=== PATIENT | female | born 1955 | race Two or more races ===

== ENCOUNTER 2022-03-10 21:05 | Inpatient (IN) | payer OTHER ==
[~2022-03-10] VITALS: Ht 152.4 cm; Wt 84.9 kg
[2022-03-10 12:50] VITALS: BP 113/74
[2022-03-10] MEDS ORDERED: LORazepam 2MG/ML-1ML VIAL IV ONE (22:30)
[2022-03-10] MEDS ORDERED: IPRATROPIUM BROM 0.5 MG/2.5ML INH SOL NEB ONE (22:30)
[2022-03-10] MEDS ORDERED: ALBUTEROL SULF 2.5 MG/0.5ML(0.5%) NEB SOLN NEB ONE (22:30)
[2022-03-10] MEDS ORDERED: methylPREDNISolone SOD SUCC 125 MG/2 ML VL IV ONE (22:30)
[2022-03-10] MEDS ORDERED: IOHEXOL 350 MG/ML 100ML IJ ONE (22:36)
[2022-03-10] MEDS ORDERED: ALBUTEROL SULF 2.5 MG/0.5ML(0.5%) NEB SOLN ONE (22:38)
[2022-03-10] MEDS ORDERED: MIDAZOLAM HCL 5 MG/ML-1ML VIAL ONE (22:43)
[2022-03-10] MEDS ORDERED: MIDAZOLAM HCL 5 MG/ML-1ML VIAL IV ONE (22:45)
[2022-03-10] MEDS ORDERED: ETOMIDATE (2MG/ML) 20ML VIAL IV ONE (22:45)
[2022-03-10] MEDS ORDERED: SUCCINYLCHOLINE CHLORIDE 20 MG/ML 10ML VIAL IV ONE (22:45)
[2022-03-10] MEDS ORDERED: MIDAZOLAM DRIP 50 mg/50mL 50 ML IV ONE (22:46)
[2022-03-10] MEDS: MIDAZOLAM DRIP 50 mg/50mL 50 ML IV SCH (22:50)
[2022-03-10] MEDS ORDERED: AZITHROMYCIN 500MG/ 250ML 250 ML IV ONE (23:15)
[2022-03-10] MEDS ORDERED: MAGNESIUM SULFATE 1GM/100ML 100 ML IV ONE (23:15)
[2022-03-10] MEDS ORDERED: FUROSEMIDE 40 MG/4 ML VIAL IV ONE (23:15)
[2022-03-10] MEDS ORDERED: cefTRIAXone 1GM/50ML D5W 50 ML IV ONE (23:15)
[2022-03-10] MEDS ORDERED: fentaNYL Drip 2500mCg/250mlNS 250 ML IV ONE (23:24)
[2022-03-10 23:32] LABS: Basophils # (auto) 0 10 ^3/uL (0-0.2); Basophils % (auto) 0.3 % (0.0-2.0); Eosinophils # (auto) 0 10 ^3/uL (0-0.8); Eosinophils % (auto) 0.3 % (0.0-7.0); Hematocrit 46.5 % (36.0-46.0); Hemoglobin 15.4 g/dL (12.2-16.2); Lymphocytes # (auto) 2.2 10 ^3/uL (0.4-5.4); Lymphocytes % (auto) 17.2 % (10.0-50.0); Mean Corpuscular Hemoglobin 30.8 pg (28.0-32.0); Mean Corpuscular Hgb Conc. 33.1 g/dL (32.0-36.0); Monocytes # (auto) 0.5 10 ^3/uL (0-1.3); Monocytes % (auto) 3.9 % (0.0-12.0); Neutrophils # (auto) 9.9 10 ^3/uL (1.6-8.6); Neutrophils % (auto) 78.3 % (37.0-80.0); Nucleated Red Blood Cells % 0.1 %; Red Cell Distribution Width 13.6 % (11.8-14.3); White Blood Cell 12.6 10^3/uL (4.4-10.8)
[2022-03-10] MEDS: fentaNYL Drip 2500mCg/250mlNS 250 ML IV SCH (23:35)
[2022-03-10 23:50] LABS: Albumin 3.9 g/dL (3.4-5.0); Calcium 9.4 mg/dL (8.5-10.1); Potassium 4.8 mmol/L (3.5-5.1)
[2022-03-10 23:52] LABS: BUN/Creatinine Ratio 24.1
[2022-03-10 23:55] LABS: Bilirubin, Total 0.4 mg/dL (0.2-1.0); Total Protein 7.4 g/dL (6.4-8.2)
[2022-03-11] VITALS (13 sets, daily range): BP systolic 92–118; BP diastolic 52–81
[2022-03-11 00:01] LABS: INR 1.03 (0.9-1.15); Partial Thromboplastin Time 25.2 sec (24.6-33.4)
[2022-03-11] MEDS ORDERED: ACETAMINOPHEN 325 MG TAB PO PRN (02:00)
[2022-03-11] MEDS ORDERED: ONDANSETRON HCL 4 MG/2 ML VIAL IV PRN (02:00)
[2022-03-11] MEDS ORDERED: DOCUSATE SOD 100 MG CAP PO PRN (02:00)
[2022-03-11] MEDS ORDERED: HYDROcodone-ACET 5/325MG TAB PO PRN (02:00)
[2022-03-11] MEDS ORDERED: SODIUM CHLORIDE 0.9% 1,000 ML IV SCH (02:00)
[2022-03-11] MEDS ORDERED: MORPHINE SULFATE INJ 2 MG/ml SYRG IV PRN (02:00)
[2022-03-11 06:44] LABS: Hematocrit 43.3 % (36.0-46.0); Hemoglobin 14.6 g/dL (12.2-16.2); Mean Corpuscular Hemoglobin 31.2 pg (28.0-32.0); Mean Corpuscular Hgb Conc. 33.8 g/dL (32.0-36.0); Mean Corpuscular Volume 92.2 fL (80.0-100.0); Red Cell Distribution Width 13.4 % (11.8-14.3); White Blood Cell 8.9 10^3/uL (4.4-10.8)
[2022-03-11 07:03] LABS: Basophils % (manual) 0 (0.0-2.0); Blast Cells 0; Eosinophils % (manual) 0 (0-7); Metamyelocytes % 0; Monocytes % (manual) 0 (0-12); Myelocytes % 0; Promyelocytes % 0; Reactive Lymphocytes 0
[2022-03-11 07:38] LABS: BUN/Creatinine Ratio 25.9; Calcium 9.2 mg/dL (8.5-10.1); Potassium 4.1 mmol/L (3.5-5.1)
[2022-03-11 09:00] LABS: Band Neutrophils % (manual) 6; Lymphocytes % (manual) 7 (10.0-50.0)
[2022-03-11 11:09] LABS: Urine Bacteria NONE SEEN /hpf (None Seen); Urine Blood Negative /uL (Negative); Urine Mucus FEW (None Seen); Urine Specific Gravity 1.049 (1.001-1.035); Urine WBC 3 /hpf (0 - 5)
[2022-03-11] MEDS: FUROSEMIDE 40 MG/4 ML VIAL IV SCH (18:02)
[2022-03-11] MEDS: cefTRIAXone 1GM/50ML D5W 50 ML IV SCH (21:06)
[2022-03-11] MEDS: MIDAZOLAM DRIP 50 mg/50mL 50 ML IV SCH (22:45)
[2022-03-11] MEDS: fentaNYL Drip 2500mCg/250mlNS 250 ML IV SCH (23:30)
[2022-03-12] VITALS (69 sets, daily range): BP systolic 88–124; BP diastolic 52–83
[2022-03-12 05:35] LABS: Basophils # (auto) 0.1 10 ^3/uL (0-0.2); Basophils % (auto) 0.4 % (0.0-2.0); Eosinophils # (auto) 0 10 ^3/uL (0-0.8); Eosinophils % (auto) 0.1 % (0.0-7.0); Hematocrit 40.1 % (36.0-46.0); Hemoglobin 13.7 g/dL (12.2-16.2); Lymphocytes # (auto) 1.6 10 ^3/uL (0.4-5.4); Lymphocytes % (auto) 12.5 % (10.0-50.0); Mean Corpuscular Hgb Conc. 34.3 g/dL (32.0-36.0); Mean Corpuscular Volume 90.5 fL (80.0-100.0); Monocytes # (auto) 0.8 10 ^3/uL (0-1.3); Neutrophils # (auto) 10.4 10 ^3/uL (1.6-8.6); Nucleated Red Blood Cells % 0.2 %; Red Blood Cells 4.43 10^6/uL (4.0-5.20); Red Cell Distribution Width 13.6 % (11.8-14.3); White Blood Cell 12.8 10^3/uL (4.4-10.8)
[2022-03-12 05:55] LABS: Albumin 3.3 g/dL (3.4-5.0); BUN/Creatinine Ratio 27.6; Calcium 9.2 mg/dL (8.5-10.1); Magnesium 2.4 mg/dL (1.6-2.6); Potassium 3.6 mmol/L (3.5-5.1)
[2022-03-12 06:04] LABS: Bilirubin, Total 0.5 mg/dL (0.2-1.0); Total Protein 6.6 g/dL (6.4-8.2)
[2022-03-12] MEDS: FUROSEMIDE 40 MG/4 ML VIAL IV SCH ×2 (06:34→17:43)
[2022-03-12] MEDS: AZITHROMYCIN 500MG/ 250ML 250 ML IV SCH (10:12)
[2022-03-12] MEDS: ENOXAPARIN SOD 40 MG/0.4 ML SYRINGE SC SCH (10:13)
[2022-03-12] MEDS ORDERED: ASPirin 81 mg TAB PO ONE (10:45)
[2022-03-12] MEDS ORDERED: PANTOPRAZOLE 40 MG/10 ML VIAL INJ IV ONE (10:45)
[2022-03-12] MEDS: MIDAZOLAM DRIP 50 mg/50mL 50 ML IV SCH ×3 (10:55→20:57)
[2022-03-12] MEDS: NOREPINEPHRINE 8 MG/250ML KIT 250 ML IV SCH (12:47)
[2022-03-12] MEDS: cefTRIAXone 1GM/50ML D5W 50 ML IV SCH (20:53)
[2022-03-12] MEDS ORDERED: ACETAMINOPHEN 650 mg PER 20.3 mL UD GT ONE (21:45)
[2022-03-12 22:24] LABS: Basophils # (auto) 0.1 10 ^3/uL (0-0.2); Basophils % (auto) 0.5 % (0.0-2.0); Eosinophils # (auto) 0.1 10 ^3/uL (0-0.8); Eosinophils % (auto) 0.5 % (0.0-7.0); Hematocrit 40.7 % (36.0-46.0); Hemoglobin 13.8 g/dL (12.2-16.2); Lymphocytes # (auto) 2.2 10 ^3/uL (0.4-5.4); Lymphocytes % (auto) 19.7 % (10.0-50.0); Mean Corpuscular Hemoglobin 31.3 pg (28.0-32.0); Mean Corpuscular Volume 91.9 fL (80.0-100.0); Monocytes # (auto) 0.8 10 ^3/uL (0-1.3); Monocytes % (auto) 6.8 % (0.0-12.0); Neutrophils # (auto) 8.3 10 ^3/uL (1.6-8.6); Neutrophils % (auto) 72.5 % (37.0-80.0); Nucleated Red Blood Cells % 0.1 %; Red Blood Cells 4.43 10^6/uL (4.0-5.20); Red Cell Distribution Width 13.4 % (11.8-14.3); White Blood Cell 11.4 10^3/uL (4.4-10.8)
[2022-03-12 22:34] LABS: Albumin 3.2 g/dL (3.4-5.0); BUN/Creatinine Ratio 36.3; Calcium 8.7 mg/dL (8.5-10.1); Potassium 3.2 mmol/L (3.5-5.1)
[2022-03-12 22:37] LABS: Bilirubin, Total 0.5 mg/dL (0.2-1.0); Total Protein 6.8 g/dL (6.4-8.2)
[2022-03-12] MEDS: fentaNYL Drip 2500mCg/250mlNS 250 ML IV SCH (23:30)
[2022-03-13] VITALS (104 sets, daily range): BP systolic 87–125; BP diastolic 40–88
[2022-03-13] MEDS: ACETAMINOPHEN 650 mg PER 20.3 mL UD GT PRN ×3 (00:01→20:49)
[2022-03-13] MEDS ORDERED: POTASSIUM CHL 20MEQ/100ML 100 ML IV ONE (00:45)
[2022-03-13] MEDS: MIDAZOLAM DRIP 50 mg/50mL 50 ML IV SCH ×4 (00:47→16:48)
[2022-03-13 04:09] LABS: Basophils # (auto) 0.1 10 ^3/uL (0-0.2); Basophils % (auto) 0.5 % (0.0-2.0); Eosinophils # (auto) 0.1 10 ^3/uL (0-0.8); Eosinophils % (auto) 0.6 % (0.0-7.0); Hemoglobin 13.7 g/dL (12.2-16.2); Lymphocytes # (auto) 2.1 10 ^3/uL (0.4-5.4); Lymphocytes % (auto) 20.1 % (10.0-50.0); Mean Corpuscular Hemoglobin 31.4 pg (28.0-32.0); Mean Corpuscular Hgb Conc. 34.3 g/dL (32.0-36.0); Mean Corpuscular Volume 91.6 fL (80.0-100.0); Monocytes # (auto) 0.9 10 ^3/uL (0-1.3); Monocytes % (auto) 8.3 % (0.0-12.0); Neutrophils # (auto) 7.4 10 ^3/uL (1.6-8.6); Neutrophils % (auto) 70.5 % (37.0-80.0); Red Blood Cells 4.36 10^6/uL (4.0-5.20); Red Cell Distribution Width 13.7 % (11.8-14.3); White Blood Cell 10.5 10^3/uL (4.4-10.8)
[2022-03-13 04:20] LABS: BUN/Creatinine Ratio 35.4; Calcium 8.7 mg/dL (8.5-10.1); Magnesium 2.3 mg/dL (1.6-2.6); Potassium 3.5 mmol/L (3.5-5.1)
[2022-03-13] MEDS: fentaNYL Drip 2500mCg/250mlNS 250 ML IV SCH (05:50)
[2022-03-13] MEDS: FUROSEMIDE 40 MG/4 ML VIAL IV SCH ×2 (05:56→18:16)
[2022-03-13] MEDS: ENOXAPARIN SOD 40 MG/0.4 ML SYRINGE SC SCH (10:00)
[2022-03-13] MEDS: ASPirin 81 mg TAB PO SCH (10:16)
[2022-03-13] MEDS: PANTOPRAZOLE 40 MG/10 ML VIAL INJ IV SCH (10:17)
[2022-03-13] MEDS: AZITHROMYCIN 500MG/ 250ML 250 ML IV SCH (10:17)
[2022-03-13] MEDS: NOREPINEPHRINE 8 MG/250ML KIT 250 ML IV SCH (12:00)
[2022-03-13 13:40] LABS: BUN/Creatinine Ratio 31.5; Calcium 8.5 mg/dL (8.5-10.1); Potassium 3.2 mmol/L (3.5-5.1)
[2022-03-13] MEDS: POTASSIUM CHL 20MEQ/100ML 100 ML IV SCH ×2 (16:49→19:51)
[2022-03-13] MEDS: cefTRIAXone 1GM/50ML D5W 50 ML IV SCH (20:40)
[2022-03-14] VITALS (89 sets, daily range): BP systolic 89–139; BP diastolic 46–90
[2022-03-14 03:55] LABS: Basophils # (auto) 0.1 10 ^3/uL (0-0.2); Eosinophils # (auto) 0.1 10 ^3/uL (0-0.8); Eosinophils % (auto) 1.1 % (0.0-7.0); Hematocrit 42.5 % (36.0-46.0); Hemoglobin 14.9 g/dL (12.2-16.2); Lymphocytes # (auto) 2.1 10 ^3/uL (0.4-5.4); Lymphocytes % (auto) 19.3 % (10.0-50.0); Mean Corpuscular Hemoglobin 31.7 pg (28.0-32.0); Mean Corpuscular Hgb Conc. 34.9 g/dL (32.0-36.0); Mean Corpuscular Volume 90.8 fL (80.0-100.0); Monocytes # (auto) 0.7 10 ^3/uL (0-1.3); Monocytes % (auto) 6.7 % (0.0-12.0); Neutrophils # (auto) 7.7 10 ^3/uL (1.6-8.6); Neutrophils % (auto) 71.9 % (37.0-80.0); Nucleated Red Blood Cells % 0.1 %; Red Blood Cells 4.69 10^6/uL (4.0-5.20); Red Cell Distribution Width 13.3 % (11.8-14.3); White Blood Cell 10.7 10^3/uL (4.4-10.8)
[2022-03-14 04:12] LABS: Calcium 8.8 mg/dL (8.5-10.1); Magnesium 2.1 mg/dL (1.6-2.6); Potassium 3.7 mmol/L (3.5-5.1)
[2022-03-14] MEDS: ACETAMINOPHEN 650 mg PER 20.3 mL UD GT PRN (05:00)
[2022-03-14] MEDS: FUROSEMIDE 40 MG/4 ML VIAL IV SCH ×2 (05:48→18:13)
[2022-03-14] MEDS: ENOXAPARIN SOD 40 MG/0.4 ML SYRINGE SC SCH (10:34)
[2022-03-14] MEDS: AZITHROMYCIN 500MG/ 250ML 250 ML IV SCH (10:34)
[2022-03-14] MEDS: PANTOPRAZOLE 40 MG/10 ML VIAL INJ IV SCH (10:34)
[2022-03-14] MEDS: ASPirin 81 mg TAB PO SCH (10:34)
[2022-03-14] MEDS: NOREPINEPHRINE 8 MG/250ML KIT 250 ML IV SCH (12:00)
[2022-03-14] MEDS ORDERED: DIGOXIN (250MCG/ML) 2 ML AMPULE IV ONE (14:00)
[2022-03-14] MEDS: DOXYCYCLINE 100MG/250ML 250 ML IV SCH (18:12)
[2022-03-14] MEDS: cefTRIAXone 1GM/50ML D5W 50 ML IV SCH (21:16)
[2022-03-14] MEDS: MIDAZOLAM DRIP 50 mg/50mL 50 ML IV SCH (22:45)
[2022-03-14] MEDS: fentaNYL Drip 2500mCg/250mlNS 250 ML IV SCH (23:30)
[2022-03-15] VITALS (81 sets, daily range): BP systolic 78–131; BP diastolic 46–78
[2022-03-15 03:12] LABS: Basophils # (auto) 0 10 ^3/uL (0-0.2); Basophils % (auto) 0.4 % (0.0-2.0); Eosinophils # (auto) 0.1 10 ^3/uL (0-0.8); Eosinophils % (auto) 1.4 % (0.0-7.0); Hematocrit 41.7 % (36.0-46.0); Hemoglobin 14.4 g/dL (12.2-16.2); Lymphocytes # (auto) 1.4 10 ^3/uL (0.4-5.4); Lymphocytes % (auto) 13.7 % (10.0-50.0); Mean Corpuscular Hemoglobin 31.3 pg (28.0-32.0); Mean Corpuscular Hgb Conc. 34.5 g/dL (32.0-36.0); Mean Corpuscular Volume 90.9 fL (80.0-100.0); Monocytes # (auto) 0.8 10 ^3/uL (0-1.3); Monocytes % (auto) 7.9 % (0.0-12.0); Neutrophils # (auto) 7.9 10 ^3/uL (1.6-8.6); Neutrophils % (auto) 76.6 % (37.0-80.0); Red Blood Cells 4.58 10^6/uL (4.0-5.20); Red Cell Distribution Width 12.9 % (11.8-14.3); White Blood Cell 10.3 10^3/uL (4.4-10.8)
[2022-03-15 03:34] LABS: BUN/Creatinine Ratio 28.6; Potassium 3.5 mmol/L (3.5-5.1)
[2022-03-15] MEDS: FUROSEMIDE 40 MG/4 ML VIAL IV SCH ×2 (05:45→17:44)
[2022-03-15] MEDS: DOXYCYCLINE 100MG/250ML 250 ML IV SCH ×2 (05:45→17:44)
[2022-03-15] MEDS: PANTOPRAZOLE 40 MG/10 ML VIAL INJ IV SCH (09:51)
[2022-03-15] MEDS: ENOXAPARIN SOD 40 MG/0.4 ML SYRINGE SC SCH (09:51)
[2022-03-15] MEDS: ASPirin 81 mg TAB PO SCH (09:52)
[2022-03-15] MEDS: NOREPINEPHRINE 8 MG/250ML KIT 250 ML IV SCH (09:52)
[2022-03-15] MEDS: cefTRIAXone 1GM/50ML D5W 50 ML IV SCH (20:39)
[2022-03-15] MEDS ORDERED: EPINEPHrine HCL 0.5 ML NEB NEB ONE (22:30)
[2022-03-16] VITALS (21 sets, daily range): BP systolic 108–143; BP diastolic 62–92
[2022-03-16 04:15] LABS: Basophils # (auto) 0 10 ^3/uL (0-0.2); Basophils % (auto) 0.4 % (0.0-2.0); Eosinophils # (auto) 0.1 10 ^3/uL (0-0.8); Eosinophils % (auto) 0.9 % (0.0-7.0); Hematocrit 41.5 % (36.0-46.0); Hemoglobin 14.2 g/dL (12.2-16.2); Lymphocytes # (auto) 0.9 10 ^3/uL (0.4-5.4); Lymphocytes % (auto) 10.1 % (10.0-50.0); Mean Corpuscular Hemoglobin 31.2 pg (28.0-32.0); Mean Corpuscular Hgb Conc. 34.1 g/dL (32.0-36.0); Mean Corpuscular Volume 91.6 fL (80.0-100.0); Monocytes # (auto) 0.8 10 ^3/uL (0-1.3); Monocytes % (auto) 8.7 % (0.0-12.0); Neutrophils # (auto) 7.3 10 ^3/uL (1.6-8.6); Neutrophils % (auto) 79.9 % (37.0-80.0); Red Blood Cells 4.53 10^6/uL (4.0-5.20); Red Cell Distribution Width 13.3 % (11.8-14.3); White Blood Cell 9.2 10^3/uL (4.4-10.8)
[2022-03-16 04:23] LABS: BUN/Creatinine Ratio 34.3; Calcium 9.3 mg/dL (8.5-10.1); Potassium 3.4 mmol/L (3.5-5.1)
[2022-03-16] MEDS: FUROSEMIDE 40 MG/4 ML VIAL IV SCH ×2 (05:33→18:26)
[2022-03-16] MEDS: DOXYCYCLINE 100MG/250ML 250 ML IV SCH ×2 (05:33→18:27)
[2022-03-16] MEDS: ENOXAPARIN SOD 40 MG/0.4 ML SYRINGE SC SCH (08:36)
[2022-03-16] MEDS: PANTOPRAZOLE 40 MG/10 ML VIAL INJ IV SCH (08:36)
[2022-03-16] MEDS: ASPirin 81 mg TAB PO SCH (08:36)
[2022-03-16] MEDS: POTASSIUM EFFERVESENT TAB 25 MEQ PO ONE ×2 (10:00→10:43)
[2022-03-16] MEDS ORDERED: POTASSIUM CHL 10 Meq TABLET PO ONE ×2 (11:00→14:45)
[2022-03-16] MEDS: cefTRIAXone 1GM/50ML D5W 50 ML IV SCH (21:29)
[2022-03-17 05:00] VITALS: BP 108/63
[2022-03-17] MEDS: DOXYCYCLINE 100MG/250ML 250 ML IV SCH (05:46)
[2022-03-17] MEDS: FUROSEMIDE 40 MG/4 ML VIAL IV SCH (05:46)
[2022-03-17 05:54] LABS: Anion Gap 9 (5-15); Blood Urea Nitrogen 24 mg/dL (7-18); Calcium 9.6 mg/dL (8.5-10.1); Carbon Dioxide 28 mmol/L (21-32); Chloride 99 mmol/L (98-107); Glucose 120 mg/dL (74-106); Magnesium 2.2 mg/dL (1.6-2.6); Potassium 3.9 mmol/L (3.5-5.1); Sodium 136 mmol/L (136-145)
[2022-03-17 05:56] LABS: BUN/Creatinine Ratio 38.7; GFR African American 123 mL/min; GFR Non-African American 102 mL/min
[2022-03-17 09:00] VITALS: BP 113/55
[2022-03-17] MEDS: PANTOPRAZOLE 40 MG/10 ML VIAL INJ IV SCH (09:05)
[2022-03-17] MEDS: ASPirin 81 mg TAB PO SCH (09:06)
[2022-03-17] MEDS: ENOXAPARIN SOD 40 MG/0.4 ML SYRINGE SC SCH (09:06)
[2022-03-17] MEDS: ACETAMINOPHEN 325 MG TAB PO PRN ×2 (09:06→19:45)
[2022-03-17 13:00] VITALS: BP 115/66
[2022-03-17 17:00] VITALS: BP 103/63
[2022-03-17] MEDS: FUROSEMIDE 20 MG TAB PO SCH (18:20)
[2022-03-17] MEDS: THROAT LOZENGES(CEPASTAT) MT PRN (19:50)
[2022-03-17] MEDS: CARVEDILOL 3.125 MG TAB PO SCH (21:51)
[2022-03-17 22:00] VITALS: BP 121/59
[2022-03-18 05:24] VITALS: BP 106/57
[2022-03-18] MEDS: FUROSEMIDE 20 MG TAB PO SCH ×2 (05:46→17:54)
[2022-03-18 06:44] LABS: BUN/Creatinine Ratio 33.3; Calcium 9.8 mg/dL (8.5-10.1); Potassium 3.1 mmol/L (3.5-5.1)
[2022-03-18 09:20] VITALS: BP 130/87
[2022-03-18] MEDS ORDERED: POTASSIUM CHL 20 Meq TABLET PO ONE (09:45)
[2022-03-18] MEDS: ASPirin 81 mg TAB PO SCH (09:53)
[2022-03-18] MEDS: PANTOPRAZOLE 40 MG TAB PO SCH (09:53)
[2022-03-18] MEDS: CARVEDILOL 3.125 MG TAB PO SCH ×2 (09:55→22:47)
[2022-03-18] MEDS: ENOXAPARIN SOD 40 MG/0.4 ML SYRINGE SC SCH (09:56)
[2022-03-18] MEDS ORDERED: POTASSIUM EFFERVESENT TAB 25 MEQ PO ONE (12:00)
[2022-03-18 13:00] VITALS: BP 112/61
[2022-03-18 17:26] VITALS: BP 120/69
[2022-03-18] MEDS ORDERED: POTASSIUM CHL 20 Meq TABLET PO SCH (20:00)
[2022-03-18] MEDS: THROAT LOZENGES(CEPASTAT) MT PRN (20:05)
[2022-03-18 22:00] VITALS: BP 107/62
[2022-03-18] MEDS: POTASSIUM EFFERVESENT TAB 25 MEQ PO SCH (22:45)
[2022-03-19] MEDS: ACETAMINOPHEN 325 MG TAB PO PRN (02:35)
[2022-03-19] MEDS: THROAT LOZENGES(CEPASTAT) MT PRN (02:38)
[2022-03-19 05:00] VITALS: BP 100/59
[2022-03-19 05:44] LABS: Calcium 10.3 mg/dL (8.5-10.1); Potassium 4.6 mmol/L (3.5-5.1)
[2022-03-19] MEDS: FUROSEMIDE 20 MG TAB PO SCH (06:33)
[2022-03-19] MEDS: ASPirin 81 mg TAB PO SCH (09:00)
[2022-03-19] MEDS: ENOXAPARIN SOD 40 MG/0.4 ML SYRINGE SC SCH (09:00)
[2022-03-19] MEDS: PANTOPRAZOLE 40 MG TAB PO SCH (09:01)
[2022-03-19] MEDS: CARVEDILOL 3.125 MG TAB PO SCH (09:01)
[2022-03-19] MEDS: POTASSIUM EFFERVESENT TAB 25 MEQ PO SCH (09:02)
[2022-03-19] MEDS ORDERED: ASPI-325 PO (11:42)
[2022-03-19] MEDS ORDERED: FURO1TAB31 PO (11:42)
[2022-03-19] MEDS ORDERED: CAR3125T OR (11:42)
[2022-03-19] MEDS ORDERED: POTA10TA51 PO (11:42)
[2022-03-19 13:19] VITALS: BP 118/81
== END 2022-03-19 14:46 | disposition home health service (06) | DRG 207 ==
LOC: EDBD 21:05 → ER 21:05 → TELE 03-11 02:05 → ICU WEST 03-12 08:25 → TELE-EAST 03-16 15:27
PROVIDERS: ADMIT Hospitalist; ATTEND Internal Medicine Geriatric Medicine
PROC: 5A1955Z Respiratory Ventilation, Greater than 96 Consecutive Hours (ICD-10-PCS; principal; 2022-03-11)
PROC: 0BH17EZ Insertion of Endotracheal Airway into Trachea, Via Natural or Artificial Opening (ICD-10-PCS; 2022-03-11)
PROC: 05HM33Z Insertion of Infusion Device into Right Internal Jugular Vein, Percutaneous Approach (ICD-10-PCS; 2022-03-11)
PROC: 4A143B0 Monitoring of Venous Pressure, Central, Percutaneous Approach (ICD-10-PCS; 2022-03-11)
DX: J96.01 Acute respiratory failure with hypoxia (principal); J18.9 Pneumonia, unspecified organism; I50.23 Acute on chronic systolic (congestive) heart failure; J98.11 Atelectasis; R78.81 Bacteremia; E66.9 Obesity, unspecified; Z68.35 Body mass index [BMI] 35.0-35.9, adult; S43.015A Anterior dislocation of left humerus, initial encounter; I11.0 Hypertensive heart disease with heart failure; E87.6 Hypokalemia; B95.8 Unspecified staphylococcus as the cause of diseases classified elsewhere; R77.8 Other specified abnormalities of plasma proteins; Z20.822 Contact with and (suspected) exposure to COVID-19; W01.0XXA Fall on same level from slipping, tripping and stumbling without subsequent striking against object, initial encounter; Y93.89 Activity, other specified; Y92.89 Other specified places as the place of occurrence of the external cause; Y99.8 Other external cause status
CPT/HCPCS: 31500; 36415; 36556; 36600; 70450; 71045; 71260; 73020; 73030; 74177; 80048; 80053; 81001; 82805; 83605; 83735; 83880; 84132; 84484; 85007; 85025; 85027; 85610; 85730; 87040; 87070; 87077; 87081; 87086; 87186; 87205; 87426; 87804; 92610; 93005; 93306; 94002; 94003; 94640; 96365; 96367; 96375; 99291; C9113; G0378; J0330; J0696; J2250; J3480; J3490; J7060